=== PATIENT | male | born 1990 | race African-American/Black ===

== ENCOUNTER 2025-08-01 10:05 | Emergency (ER) | payer BC ==
[~2025-08-01] VITALS: Ht 185.4 cm; Wt 81.6 kg
[2025-08-01 10:09] VITALS: BP 104/79
[2025-08-01 10:56] LABS: PLATELET COUNT (AUTO) 249 K/uL (152-348); RED BLOOD CELL COUNT(AUTO) 5.02 MIL/uL (4.06-5.63); RED CELL DISTRIBUTION WIDTH 13.4 % (12.1-16.2); WHITE BLOOD COUNT (AUTO) 4.1 K/uL (3.6-10.2)
[2025-08-01 10:56] LABS: *BILIRUBIN,URIN NEGATIVE (NEGATIVE); *BLOOD, URINE NEGATIVE (NEGATIVE); *CLARITY,URINE CLEAR (CLEAR); *COLOR,URINE YELLOW (YELLOW); *KETONES,URINE 1+ (NEGATIVE); *PROTEIN,URINE NEGATIVE (NEGATIVE); *UROBILINOGEN,URINE 0.2 E.U./dl (NORMAL); LEUKOCYTE ESTERASE ,URINE NEGATIVE (NEGATIVE); NITRITE, URINE NEGATIVE (NEGATIVE); UGLUCOSE NEGATIVE (NEGATIVE)
[2025-08-01 11:02] LABS: URINE AMORPHOUS PHOSPHATES FEW /HPF
[2025-08-01 11:10] LABS: ASPARTATE AMINOTRANSFERASE 20 U/L (15-37); CREATININE 0.9 mg/dL (0.6-1.3); SODIUM SERUM 140 mmol/L (136-145); TOTAL PROTEIN, SERUM 6.9 g/dL (6.4-8.2); UREA NITROGEN, BLOOD 12 mg/dL (7-18)
[2025-08-01] MEDS ORDERED: FAMO40TA7 PO (12:16)
[2025-08-01] MEDS ORDERED: SUCR1ORA4 PO (12:16)
[2025-08-01 12:28] VITALS: BP 104/79; TEMP 97.8; O2SAT 99
[2025-08-01] MEDS ORDERED: SUCR1TAB31 PO (15:45)
== END 2025-08-01 12:28 | disposition home or self-care (01) ==
LOC: ER 10:05
DX: R10.13 Epigastric pain (principal); F12.90 Cannabis use, unspecified, uncomplicated; M26.609 Unspecified temporomandibular joint disorder, unspecified side; Z59.71 Insufficient health insurance coverage
CPT/HCPCS: 36415; 76700; 83690; 84484; 85025; 85730; A4606; A4663